=== PATIENT | female | born 1955 | race Caucasian/White ===

== ENCOUNTER → 2016-12-03 | Outpatient (CLI) | payer BC ==
[~2016-12-03] MED LIST: NO MEDS; OPTIRAY 320 IV PRN; OXYC-57 PO
--- NOTE | 2016-12-03 13:39 | DIAGNOSTIC IMAGING REPORT ---
CHEST CT WITH CONTRAST CT DOSE: HISTORY: Breast cancer. TECHNIQUE: Multiaxial CT images of the chest were performed following the intravenous administration of contrast. COMPARISON: Chest CT 08/13/2016. FINDINGS: The central airways are patent. No pleural effusions. No pneumothorax. Biapical pleural-parenchymal scarring remains unchanged. Stable 5 mm nodule within the left lower lobe. This is likely benign given the long-term stability. A few tiny subpleural nodules within the periphery the right upper lobe are also unchanged. No new or suspicious nodules identified. Stable 3 mm groundglass nodule within the right lower lobe on image 214. No suspicious lytic or blastic osseous lesions. Right-sided jugular Port-A-Cath terminates in the distal SVC. Bilateral breast implant reconstruction is again noted. No anterior chest wall masses. No pleural or pericardial effusions. No mediastinal or hilar lymphadenopathy. No axillary lymphadenopathy. The mediastinal vascular structures are within normal limits. IMPRESSION: No evidence for metastatic disease within the chest. Additional findings as described above. Electronically signed by: Vishal Sam M.D. 12/03/2016 1:36 PM Dictated Date/Time: 12/03/2016 1:27 PM
--- NOTE | 2016-12-03 13:49 | DIAGNOSTIC IMAGING REPORT ---
CT SCAN OF THE ABDOMEN AND PELVIS WITH IV CONTRAST CLINICAL HISTORY: Breast cancer. COMPARISON STUDY: Abdominal CT dated 02/16/2016. TECHNIQUE: Following the IV administration of 93 cc of Optiray 320, CT scan of the abdomen and pelvis is performed from the lung bases to the proximal femora. Images are reviewed in the axial, sagittal, and coronal planes. IV contrast was administered without complication. Automated dose control exposure was utilized. CT DOSE: 502.18 mGy.cm FINDINGS: Lung bases: The heart is normal in size and without pericardial effusion. A 4 mm left lower lobe pulmonary nodule is seen on image #72. This is unchanged from prior studies. The lung bases are otherwise clear. There are bilateral breast implants. Liver: The contrast-enhanced liver is normal in size, contour, and attenuation. There is no intrahepatic biliary ductal dilatation. The hepatic veins and portal veins are patent. Gallbladder: Surgically absent noting clips in the gallbladder fossa. Spleen: Normal in size and attenuation. Pancreas: Unremarkable. Adrenal glands: Unremarkable. Kidneys: The contrast enhanced kidneys demonstrate cortical atrophy and are without hydronephrosis. An extrarenal pelvis is noted on the left. The kidneys enhance symmetrically. Bilateral subcentimeter cortical hypodensities likely represent cysts but are too small for definitive characterization. Abdominal vasculature: The abdominal aorta is normal in course and caliber noting mild to moderate atherosclerotic calcification. Bowel: The small bowel and colon are normal in course and caliber. There is moderate colonic fecal retention. The appendix is well-visualized and normal. Peritoneum: There is no intraperitoneal free air or abdominal ascites. Lymphadenopathy: None. Pelvic viscera: The bladder, uterus, and adnexa are normal as visualized. Skeletal structures: The skeletal structures are osteopenic. No lytic or blastic lesions are seen. IMPRESSION: 1. There is no evidence of metastatic disease in the abdomen or pelvis. 2. No acute infectious or inflammatory findings are identified. 3. Moderate constipation. 4. A 4 mm pulmonary nodule at the left lung base is unchanged. See report of chest CT performed concurrently for detailed intrathoracic findings. Electronically signed by: Lamont Nunez M.D. 12/03/2016 1:47 PM Dictated Date/Time: 12/03/2016 1:41 PM
== END | disposition home or self-care (01) ==
LOC: C.CTS 12:34
PROVIDERS: ATTEND Internal Medicine Hematology & Oncology
DX: C50.812 Malignant neoplasm of overlapping sites of left female breast (principal); R91.1 Solitary pulmonary nodule; K59.00 Constipation, unspecified

== ENCOUNTER → 2017-06-07 | Outpatient (CLI) | payer BC ==
[~2017-06-07] MED LIST changes: -OXYC-57 PO
--- NOTE | 2017-06-07 11:30 | DIAGNOSTIC IMAGING REPORT ---
CHEST CT WITH CONTRAST CT DOSE: 231.81 mGy.cm HISTORY: Breast cancer. TECHNIQUE: Multiaxial CT images of the chest were performed following the intravenous administration of contrast. A dose lowering technique was utilized adhering to the principles of ALARA. COMPARISON: Chest CT 12/03/2016. FINDINGS: The central airways are patent. No pleural effusions. No pneumothorax. Biapical pleural-parenchymal scarring remains unchanged. Stable 5 mm nodule within the left lower lobe. This is likely benign given the long-term stability. A few tiny subpleural nodules within the periphery the right upper lobe are also unchanged. No new or suspicious nodules identified. Stable 3 mm groundglass nodule within the right lower lobe on image 228. No suspicious lytic or blastic osseous lesions. Right-sided jugular Port-A-Cath terminates in the distal SVC. Bilateral breast implant reconstruction is again noted. No anterior chest wall masses. No pleural or pericardial effusions. No mediastinal or hilar lymphadenopathy. No axillary lymphadenopathy. The mediastinal vascular structures are within normal limits. IMPRESSION: No change from the prior study. No evidence for metastatic disease within the chest. Additional findings as described above. Electronically signed by: Vishal Sam M.D. 06/07/2017 11:29 AM Dictated Date/Time: 06/07/2017 11:11 AM
== END | disposition home or self-care (01) ==
LOC: C.CTS 10:24
PROVIDERS: ATTEND Nurse Practitioner Family
DX: Z85.3 Personal history of malignant neoplasm of breast (principal)

== ENCOUNTER 2017-07-20 07:23 | Day surgery (SDC) | payer BC ==
[~2017-07-20] VITALS: Ht 174 cm; Wt 60.0 kg
--- NOTE | 2017-07-20 06:11 | History and Physical ---
History & Physical Date of Service Jul 20, 2017. History & Physical Chief Complaint Bilateral breast cancer, post port insertion History of Present Illness The patient is a 61 year old female with bilateral breast ca. She had a port placed which is no longer needed. She is here for removal of the port. Allergies Uncoded Allergies: BEE STINGS (Allergy, Severe, hives sob, 04/13/16) Problem List Medical Problems: (1) Hypertension (2) Malignant neoplasm of unspecified site of left female breast Surgical / Medical History Hx Cardiac Surgery: No Hx Abdominal Surgery: Yes (gallbladder) Hx Cancer Surgery: Yes (bilat mastectomy breast expanders) Hx Thoracic Surgery: No Hx Orthopedic: No Hx Urinary Tract Surgery: No Past Medical/Surgical History: Cancer Family History No pertinent family history Social History Smoking Status: Former Smoker Hx Tobacco Use In Past Year?: No Hx Alcohol Use - Type & Amnt: Yes (occ) Hx Substance Use -Type & Amnt: No Review of Systems Constitutional: No chills, No diaphoresis, No fever, No malaise, No weakness, No weight gain, No weight loss, No sweats, No fatigue, No problem reported Skin: No change in color, No change in hair/nails, No dryness, No lesions, No lumps, No rash, No abnormal mole, No problem reported Eyes: No discharge, No blurred vision, No double vision, No eye pain, No tearing, No itching, No photophobia, No redness, No visual changes, No dryness, No irritation, No problem reported ENMT: No dental pain, No loss of hearing, No epistaxis, No ear discharge, No ear pain, No gum swelling, No mouth pain, No mouth swelling, No nasal congestion , No nasal pain, No rhinorrhea, No stridor, No tinnitus, No sore throat, No throat swelling, No problem reported Respiratory: No cough, No cyanosis, No POWERS, No hemoptysis, No orthopnea, No PND , No short of breath, No sputum production, No stridor, No wheezing, No dyspnea , No problem reported Cardiovascular: No chest pain, No chest tightness, No chest pressure, No palpitations, No syncope, No diaphoresis, No edema, No intermittent claudication , No orthopnea, No cyanosis, No mumur, No lightheadedness, No paroxysmal nocturnal dyspnea, No problem reported Gastrointestinal: No abdominal pain, No constipation, No diarrhea, No nausea, No vomiting, No anorexia, No appetite changes, No belching, No flatulence, No food intolerance, No hematemesis, No hemorrhoids, No hematochezia, No stool changes, No heartburn, No indigestion, No dysphagia, No rectal bleeding, No problem reported Genitourinary - Female: No dysmenorrhea, No dysuria, No hematuria, No hesitancy , No menorrhagia, No metrorrhagia, No , No rash, No urinary frequency, No urinary incontinence, No urinary retention, No urinary urgency, No vulvadynia , No vaginal bleeding, No vaginal discharge, No vaginal itching, No breast problems, No problem reported Musculoskeletal: No back pain, No gout, No joint pain, No joint swelling, No muscle pain, No muscle stiffness, No muscle weakness, No neck pain, No problem reported Neurologic: No dizziness, No weakness, No headache, No lethargy, No numbness, No paresthesia, No pre-existing deficit, No seizures, No tics, No tingling, No tremors, No vertigo, No memory loss, No LOC, No problem reported Psychiatric: No anxiety, No alcohol abuse, No auditory hallucinations, No depression, No drug abuse, No homicidal ideation, No mood changes, No suicidal ideation, No visual hallucinations, No problem reported Physical Exam Constitutional: General Apperance: heathly-appearing, well-nourished, well-developed Level of Distress: NAD Ambulation: ambulating normally Psychiatric: Mental Status: active & alert, normal mood, normal affect Orientation: oriented except where noted, to time, to place, to person Memory: recent memory normal, remote memory normal Head: normocephalic Neck: supple Lungs: Auscultation: breath sounds normal Cardiovascular: Heart Auscultation: RRR Peripheral Pulses: Pulses: full and equal, in all extremities except if noted Abdomen: Inspection & Palpation: soft Musculoskeletal: normal, normal strength (5/5 throughout), normal tone Extremities: Upper Right: no cyanosis, no edema, no varicosities, no palpable cord, no clubbing, no ulcers, no mottling Upper Left: no cyanosis, no edema, no varicosities, no palpable cord, no clubbing, no ulcers, no mottling Lower Right: no cyanosis, no edema, no varicosities, no palpable cord, no clubbing, no ulcers, no mottling Lower Left: no cyanosis, no edema, no varicosities, no palpable cord, no clubbing, no ulcers, no mottling Neurologic: Cranial Nerves: grossly intact Sensation: grossly intact Assessment and Plan Imp: Breast Cancer Post port insertion Plan: Patient admitted for removal of an infusaport. I have discussed the risks options and benefits of the procedure with the patient. The patient understands the risks options and benefits and agrees to the procedure.
[~2017-07-20 07:23] MED LIST changes: +CEFAZOLIN 1000MG IV PUSH 5 ML IV SCH; -OPTIRAY 320 IV PRN; +SODIUM CHLORIDE 0.9% 1000ML IV SCH
[2017-07-20 07:50] VITALS: BP 140/63; PULSE 69; TEMP 36.6; O2SAT 99; Ht 174 cm; Wt 60.0 kg
--- NOTE | 2017-07-20 08:09 | History & Physical Bridge Note ---
H&P Re-Evaluation Bridge Note: I have examined the patient, reviewed the History & Physical and in the interval since the performance of the History & Physical I have noted the following changes of clinical significance: No changes noted
--- NOTE | 2017-07-20 08:10 | Procedure Note ---
Pre-Mod Sedation Assessment General Date of Moderate Sedation: Jul 20, 2017. Vital Signs: Vital Signs Past 12 Hours Date Time Temp Pulse Resp B/P (MAP) Pulse Ox O2 Delivery O2 Flow Rate FiO2 07/20/17 07:50 36.6 69 18 140/63 (88) 99 Room Air Pre-Sedation Airway Assessment Oral Cavity: Capped Teeth Short Thick Neck: No Hx of Sleep Apnea: No Smoking Status: Former Smoker Mallampati Classification: Class I ASA Classification: Class II Notes The planned sedation has been discussed with the patient and consent obtained. I have identified the patient, determined the appropriateness of sedation and have assessed the patient immediately prior to the procedure. All medicine(s) and interventions are by my order.
[2017-07-20] MEDS ORDERED: LIDOCAINE HCL 1% 20 ML VIAL ONE (10:01)
[2017-07-20] MEDS ORDERED: MIDAZOLAM HCL 1 MG/ML 2ML VIAL ONE (10:01)
[2017-07-20] MEDS ORDERED: FENTANYL CITRATE INJ 50 MCG/1 ML 2 ML VIAL ONE (10:01)
[2017-07-20 10:02] VITALS: BP 140/63; PULSE 67; TEMP 36.7; O2SAT 98
[2017-07-20] MEDS ORDERED: LIDOCAINE HCL 1% 20 ML VIAL INJ ONE (10:31)
[2017-07-20] MEDS ORDERED: MIDAZOLAM HCL 1 MG/ML 2ML VIAL IV ONE (10:40)
[2017-07-20] MEDS ORDERED: FENTANYL CITRATE INJ 50 MCG/1 ML 2 ML VIAL IV ONE (10:40)
--- NOTE | 2017-07-20 10:45 | [facility] Operative Report ---
Operative Report Operative Date Jul 20, 2017. Pre-Operative Diagnosis Breast Cancer Post port insertion Post-Operative Diagnosis Same Procedure(s) Performed Removal of Insfusaport Moderate Sedation 8313-0664 Surgeon Dionne Cutter Finisher Surgeon(s) None Estimated Blood Loss 5 Findings Port and entire catheter were removed Specimens a; Infusaport Indications This is a 62-year-old female who had an Uzzkiz-i-Iffl placed for breast cancer chemotherapy. She no longer needs the port. Removal of port was recommended. I have discussed the risks options and benefits of the procedure with the patient. The patient understands the risks options and benefits and agrees to the procedure. Description of Procedure Patient was taken to the angio suite and placed in the supine position. The right side of the neck and chest wall were prepped and draped in a sterile manner. Local anesthesia was then administered to the appropriate areas of the neck and chest wall. A transverse incision was made below the clavicle on the chest wall in the line of the old incision. Bleeding was controlled using cautery. Using sharp and blunt dissection the port and fibrin sheath were dissected free and removed. The catheter slid out easily. Adequate hemostasis was then obtained. Once adequate hemostasis was noted the wound was then closed. The incision was closed using a 3-0 Vicryl suture for the subcutaneous layer and a 4-0 Vicryl subcuticular stitch for the skin layer. Dermabond was used for a dressing on the incision. Pressure was applied to the catheter site over the internal jugular vein. The patient left the angio suite in good condition and tolerated the procedure well. The patient left the angiogram room in satisfactory condition and tolerated the procedure well. All needle and sponge counts were correct at the end of the procedure. I attest to the content of the Intraoperative Record and any orders documented therein. Any exceptions are noted below.
--- NOTE | 2017-07-20 10:46 | Procedure Note ---
Post-Moderate Sedation Plan General Date of Moderate Sedation Jul 20, 2017. Vital Signs: Vital Signs Past 12 Hours Date Time Temp Pulse Resp B/P (MAP) Pulse Ox O2 Delivery O2 Flow Rate FiO2 07/20/17 10:02 36.7 67 16 140/63 98 Room Air 07/20/17 07:50 36.6 69 18 140/63 (88) 99 Room Air Review - Discharge Plan Post Moderate Sedation Plan: On clinical assessment, the patient appears to have tolerated the conscious sedation without complications. Patient is recovering as anticipated. Patient will continue to be monitored by nursing and may be discharged when conscious sedation discharge criteria are met.
[2017-07-20] MEDS ORDERED: OXYC-57 PO (10:48)
--- NOTE | 2017-07-20 10:50 | Discharge Instructions ---
Discharge Instructions Date of Service Jul 20, 2017. Visit Reason for Visit: Breast Cancer Discharge Discharge Diagnosis / Problem: Post infusaport insertion Discharge Goals Goal(s): Therapeutic intervention Activity Recommendations Activity Limitations: per Instructions/Follow-up section Shower/Bathe: tomorrow Anesthesia . Post Anesthesia Instructions: If you have had General Anesthesia or IV Sedation: * Do not drive today. * Resume driving when surgeon permits. * Do not make important decisions or sign legal documents today. * Call surgeon for: 1. Temperature elevations greater than 101 degrees F. 2. Uncontrollable pain. 3. Excessive bleeding. 4. Persistent nausea and vomiting. 5. Medication intolerance (nausea, vomiting or rash). * For nausea and vomiting use only clear liquids such as: tea, soda, bouillon until nausea subsides, then gradually increase diet as tolerated. * If you have any concerns or questions, call your surgeon's office. If physician is unavailable and it is an emergency, call 911 or go to the nearest emergency room. . Instructions / Follow-Up Instructions / Follow-Up Call [phone] to schedule a follow up appointment if one not already scheduled. ACTIVITY RECOMMENDATIONS: See Above SPECIAL CARE INSTRUCTIONS: Call your doctor if: * Temperature above 101 degrees * Pain not relieved by pain medicine ordered * There is increased drainage or redness from any incision * You have any unanswered questions or concerns. Diet Recommendations Recommended Home Diet: resume previous diet Procedures Procedures Performed: Removal of Insfusaport Moderate Sedation [id number] Pending Studies Studies pending at discharge: no Medical Emergencies . Who to Call and When: Medical Emergencies: If at any time you feel your situation is an emergency, please call 911 immediately. . Non-Emergent Contact Non-Emergency issues call your: Surgeon . . "Provider Documentation" section prepared by Pedro Truong. .
[2017-07-20 10:55] VITALS: BP 128/66; PULSE 68; TEMP 36.5; O2SAT 99
[2017-07-20] MEDS ORDERED: OXYCODONE/ACETAMINOPHEN 5-325 TAB PO PRN (11:00)
[2017-07-20 11:25] VITALS: BP 134/60; PULSE 69; TEMP 36.3; O2SAT 99
== END 2017-07-20 11:37 | disposition home or self-care (01) ==
LOC: C.ACU 07:23
PROVIDERS: ATTEND Surgery Vascular Surgery
DX: C50.911 Malignant neoplasm of unspecified site of right female breast (principal); C50.912 Malignant neoplasm of unspecified site of left female breast; Z90.49 Acquired absence of other specified parts of digestive tract; Z90.13 Acquired absence of bilateral breasts and nipples; Z98.82 Breast implant status; Z87.891 Personal history of nicotine dependence